=== PATIENT | female | born 1965 | race Caucasian/White ===

== ENCOUNTER → 2019-10-20 11:45 | Outpatient (BNVA) | payer MEDICAID, SELFPAY | PROVIDERS: Referring Provider Nurse Practitioner Family; Visit Provider Specialist | DX: M25.512 Pain in left shoulder (principal) | CPT/HCPCS: 73030 ==

== ENCOUNTER 2019-10-23 13:28 | Emergency (ER) | payer MEDICAID, SELFPAY ==
[2019-10-23 13:39] VITALS: BP 214/107; PULSE 62; RESP 16; TEMP 36.7; O2SAT 98; BMI 26.0
--- NOTE | 2019-10-23 14:07 | ED_ITS ---
Entered by Maine Carter, acting as scribe for Mery Miranda HPI - General Adult General: Chief complaint: General Medical Stated complaint: High BP Time Seen by Provider: 10/23/19 14:04 Source: patient Mode of arrival: ambulatory Limitations: no limitations History of Present Illness: HPI narrative: 54 yo Female presents to ED with complaint of elevated blood pressure. Pt states that a nurse took her blood pressure and highly recommended that she come to the ED. Pt states that about 30 minutes after she takes her medication she has an overload of anxiety. Pt states that she hasn't been having any symptoms related to her high blood pressure but that she does have a cardiac history. Pt states that she hasn't taken any of her blood pressure medications today. Pt states that she thought she had taken them but she hasn't. Pt's blood pressure was recycled and is 195/101. MD complaint: High Blood Pressure Onset (ago): day(s) Relieving factors: none Exacerbating factors: none Associated symptoms: Reports no associated symptoms; Deny chest pain, confusion, diaphoresis, dyspnea, headache(s), malaise, nausea, rash, palpitations, syncope or vomiting Treatments prior to arrival: none Review of Systems General: Reports: other (negative unless marked) Const: Denies: fever, chills, body aches, fatigue, malaise or diaphoresis Eyes: Denies: change in vision or blurry vision ENMT: Denies: throat pain, painful swallowing, hoarseness, ear pain, ear discharge, Change in hearing or nasal discharge Card: Denies: chest pain, palpitations, irregular heart rhythm, syncope, pre- syncope, shortness of breath on exertion or shortness of breath when lying down Resp: Denies: shortness of breath, productive cough, non-productive cough, wheezing, coughing up blood or chest congestion GI: Denies: abdominal pain, nausea, vomiting, vomiting blood, coffee grounds in vomit, diarrhea, constipation, cramping, blood in stool or black tarry stool : Denies: flank pain, painful urination, urinary frequency, urinary urgency, decreased urine ouput, urinary incontinence or blood in urine Musc: Denies: neck pain, back pain, extremity pain, extremity swelling, joint pain, joint swelling, joint warmth or joint stiffness Skin/Breast: Denies: rash, skin tenderness or yellow skin Neuro: Denies: headache, numbness in extremities, weakness in extremities, changes in sensation, lack of coordination, difficulty walking, dizziness, vertigo or confusion Endo: Denies: excessive thirst, tired all the time, cold intolerance, excessive sweating, flushing or hot flashes Sukhwinder/Lymph: Denies: easy bruising, easy bleeding, petechiae or enlarged lymph nodes All/Imm: Denies: hives, throat swelling, tongue swelling, facial swelling or acute wheezing PFSH ED PFSH: Statuses (acute, chronic, etc) shown below reflect problem list status as previously entered and may not be historically accurate Family History Father Stroke Hypertension Mother CHF (congestive heart failure) Hypertension Pacemaker Daughter Hypokalemia Osteoarthritis Son Depression Other Cancer Hyperthyroidism Social History Smoking and tobacco status: former smoker Alcohol intake: current Alcohol intake frequency: holidays/special occasions only Physical Exam Const: COMMON NORMALS: no apparent distress, oriented x3, no limitations, healthy appearing and well nourished EXAM LIMITATIONS: no altered mental status GENERAL APPEARANCE: cooperative, well kempt and well developed ORIENTATION/CONSCIOUSNESS: Yes awake HENMT: COMMON NORMALS: normocephalic, head/scalp atraumatic, hearing grossly normal bilaterally, external ears normal, EAC's normal, external nose normal and moist oral mucous membranes HEAD & SCALP: normal to inspection, normocephalic and atraumatic FACE & SINUS: normal facial exam and face symmetric NOSE: external nose normal and nares normal EXTERNAL EAR: Yes external ears normal EXTERNAL AUDITORY CANAL: EAC's normal MOUTH: oral and palatal mucosa normal and tongue normal Eye: COMMON NORMALS: PERRL, EOMs intact bilaterally, conjunctivae normal and no scleral icterus GENERAL EYE: normal appearance of both eyes and normal light reflex CONJUNCTIVA: Yes conjunctivae normal SCLERA: sclerae normal CORNEA: Yes corneas normal PUPIL: Yes PERRL DIRECT OPHTHALMOSCOPY: Yes normal light reflex Neck/C-Spine: COMMON NORMALS: full ROM, no lymphadenopathy, supple, no meningeal signs and no JVD GENERAL: Yes normal visual inspection and Yes trachea midline CERVICAL SPINE: Yes cervical ROM normal Chest: COMMONS NORMALS: inspection of chest normal and palpation of chest normal Resp: COMMON NORMALS: normal respiratory effort, no retractions, no use of accessory muscles and clear to auscultation bilaterally EFFORT & INSPECTION: Yes able to speak in complete sentences AUSCULTATION: clear to auscultation bilaterally Cardio: COMMON NORMALS: no JVD, regular rate, regular rhythm, S1 normal heart sound, S2 normal heart sound, no gallops, no clicks, no murmurs and no rub JUGULAR VENOUS DISTENTION: no JVD RATE: regular rate RHYTHM: regular rhythm HEART SOUNDS: S1 normal and S2 normal GI: COMMON NORMALS: soft to palpation, non-tender, no hepatosplenomegaly and no masses INSPECTION: Yes normal to inspection PALPATION: Yes soft and Yes no hepatosplenomegaly : COMMON NORMALS: Yes no CVA tenderness BLADDER/KIDNEY EXAM: Yes no CVA tenderness Back/Pelvis: COMMON NORMALS: no CVA tenderness, thoracic and lumbar spine normal to inspection, no thoracic nor lumbar tenderness and thoraco-lumbar ROM normal Extremity: COMMON NORMALS: normal to inspection, full ROM, normal capillary refill, no joint enlargement, no clubbing, cyanosis or edema and no calf tenderness Neuro: COMMON NORMALS: oriented x3, CN's II-XII intact bilaterally, moves all extremities, no focal motor deficits and no sensory deficits noted MENINGEAL SIGNS: Yes no meningeal signs Psych: COMMON NORMALS: mental status grossly normal, thought process normal, cooperative, affect normal, speech normal and activity/motor behavior normal APPEARANCE: Yes well kempt SPEECH: Yes normal speech THOUGHT PROCESS: normal thought process Skin: COMMON NORMALS: no rashes or lesions noted, skin turgor normal, no jaundice, no petechiae and no mottling GENERAL SKIN EXAM: no rashes or lesions noted and turgor normal Course Vital Signs: Vital signs: Vital Signs Temperature 98.0 F 10/23/19 13:39 Pulse Rate 57 L 10/23/19 15:03 Respiratory Rate 20 H 10/23/19 15:03 Blood Pressure 185/97 10/23/19 15:03 Pulse Oximetry 95 10/23/19 15:03 MDM - General Adult MDM Narrative: Medical decision making narrative: [place] is a very nice 54-year-old female who comes in with a concern of elevated blood pressure. She is completely asymptomatic. She had a routine blood pressure check today at her doctor's office and they were concerned about a systolic over 200 and sent her here. Again the patient is asymptomatic. The patient admits to not taking her blood pressure medicines today including her lisinopril/hydrochlorothiazide 20/25 and metoprolol 25 mg. I had her take those medicines here and her blood pressure has already trended down. The patient agrees to complete a blood pressure log and she will follow-up with her doctor as instructed. As the patient has no symptoms of hypertensive urgency/emergency I do not believe a work-up is required. The patient is noncompliant and I have discussed with her that the need to take these medications and she states they do cause anxiety but she will continue them until she can meet with her doctor and discuss further. The patient understands she is welcome to return should her symptoms change/worsen or she simply change her mind and want to return. Lab Data: Labs: Lab Results 10/23/19 10/23/19 10/23/19 Range/Units 14:00 14:00 14:10 WBC 9.3 (4.0-10.0) 10^3/ uL RBC 4.18 (4.1-5.3) 10^6/u L Hgb 13.0 (11.5-15.3) g/dL Hct 39.7 (37.0-47.0) % MCV 95.0 (81-99) fL MCH 31.1 (28.0-34.0) pg MCHC 32.7 (30.0-36.0) g/dL RDW 12.4 (12.1-15.1) % Plt Count 235 (130-400) 10^3/c mm MPV 10.7 H (7.4-10.4) fL Neut % (Auto) 60.8 % Lymph % (Auto) 28.2 % Rogers % (Auto) 7.7 % Eos % (Auto) 2.6 % Baso % (Auto) 0.4 % Neut # (Auto) 5.6 (1.8-7.7) 10^3/u L Lymph # (Auto) 2.6 (0.8-4.8) 10^3/u L Rogers # (Auto) 0.7 (0.2-0.9) 10^3/u L Eos # (Auto) 0.2 (0.0-0.8) 10^3/u L Baso # (Auto) 0.0 (0.0-0.1) 10^3/u L Nucleated RBC % (a uto) 0 % Nucleated RBCs # 0.0 /100WBC Sodium 139 (136-145) mmol/L Potassium 4.0 (3.5-5.1) mmol/L Chloride 103 (98-107) mmol/L Carbon Dioxide 27 (22-29) mmol/L Anion Gap 13.0 (5-19) BUN 12 (6-20) mg/dL Creatinine 1.4 H (0.5-0.9) mg/dL GFR Calculation 38.9 L (90-130) mL/min Glucose 94 (65-115) mg/dL Calcium 10.0 (8.5-10.5) mg/dL Total Bilirubin 0.4 (0.15-1.2) mg/dL AST 17 (0-32) U/L ALT 14 (0-33) U/L Alkaline Phosphata se 137 H (35-105) IU/L Total Protein 7.4 (6.6-8.7) g/dL Albumin 4.2 (3.5-5.2) g/dL Globulin 3.2 (1.3-4.6) g/dL Urine Color Straw (Yellow) Urine Appearance Clear (CLEAR) Urine pH 6 (5-7) Ur Specific Gravit y 1.010 (1.005-1.030) Urine Protein Neg (Negative) Urine Glucose (UA) Norm (Normal) Urine Ketones Negative (Negative) Urine Occult Blood Neg (Negative) Urine Nitrate Negative (Negative) Urine Bilirubin Neg (NEGATIVE) Urine Urobilinogen Norm (Negative) mg/dL Ur Leukocyte Merle ase Negative (Negative) Discharge Plan Discharge Patient Disposition: Home, Self-Care Clinical Impression: Hypertension Qualifiers: Hypertension type: unspecified Qualified Code(s): I10 - Essential (primary) hypertension Condition: Stable Prescriptions: No Action Brilinta 90 mg tablet 90 mg PO BID RF: 0 metoprolol tartrate 25 mg tablet 25 mg PO QDAY RF: 0 lisinopril-hydrochlorothiazide 20-25 mg tablet 1 tab PO QDAY RF: 0 atorvastatin 80 mg tablet 80 mg PO QDAY RF: 0 tizanidine 4 mg capsule 4 mg PO ONCE PRNRF: 0 Discharge Orders: Discharge Order (Routine); Ordered 10/23/19 Ordered By: Mery Miranda Referrals: Jovany Horne DO [Physician] - 7-10 days Discharge Diet: Low Salt Discharge Activity: Resume usual activity Patient Instructions: Hypertension, Chronic Hypertension (ED), Low Sodium Diet (ED), Hypertension (ED) Activity Restrictions/Additional Instructions: Please return to the ER immediately for any of the signs or symptoms listed on your discharge instruction sheets, worsening/changing of your symptoms, you are not getting better as quickly as expected, or for ANY other cause or concerns. Return to the ER for headache, chest pain, shortness of breath, leg swelling, decreased urine output or for any other cause for concern. Discharge Date/Time: 10/23/19 15:04 Coding Level of Care Code ED Veneer Measurer for Chg Fwd Exam Problem Focused The documentation recorded by the Emma garcia Carmen, accurately reflects the service I personally performed and the decisions made by , Mery Miranda Oct 23, 2019 13:28
[2019-10-23 14:18] LABS: Basophils % 0.4 %; Eosinophils # 0.2 10^3/uL (0.0-0.8); Eosinophils % 2.6 %; Hematocrit 39.7 % (37.0-47.0); Lymphocytes # 2.6 10^3/uL (0.8-4.8); Lymphocytes % 28.2 %; Mean Corpuscular HGB Conc 32.7 g/dL (30.0-36.0); Mean Corpuscular Hemoglobin 31.1 pg (28.0-34.0); Mean Platelet Volume 10.7 fL (7.4-10.4); Monocytes # 0.7 10^3/uL (0.2-0.9); Monocytes % 7.7 %; Neutrophils # 5.6 10^3/uL (1.8-7.7); Neutrophils % 60.8 %; Nucleated Red Blood Cells % 0 %; Platelet Count 235 10^3/cmm (130-400); Red Blood Count 4.18 10^6/uL (4.1-5.3); Red Cell Distribution Width 12.4 % (12.1-15.1); White Blood Count 9.3 10^3/uL (4.0-10.0)
[2019-10-23 14:19] LABS: Alanine Aminotransferase 14 U/L (0-33); Albumin Level 4.2 g/dL (3.5-5.2); Alkaline Phosphatase 137 IU/L (35-105); Aspartate Amino Transferase 17 U/L (0-32); Blood Urea Nitrogen 12 mg/dL (6-20); Carbon Dioxide 27 mmol/L (22-29); Chloride 103 mmol/L (98-107); Creatinine Clr Calc Pharmacy 49.5196; Globulin 3.2 g/dL (1.3-4.6); Glomerular Filtration Rate 38.9 mL/min (90-130); Glucose 94 mg/dL (65-115); Sodium 139 mmol/L (136-145); Total Bilirubin 0.4 mg/dL (0.15-1.2); Total Protein 7.4 g/dL (6.6-8.7)
[2019-10-23 14:50] LABS: Add Urine Microscopic? NO
[2019-10-23 14:56] LABS: Bilirubin Urine Neg (NEGATIVE); Blood Urine Neg (Negative); Glucose Urine UA Norm (Normal); Ketones Urine Negative (Negative); Leukocyte Esterase Urine Negative (Negative); Nitrate Urine Negative (Negative); Protein Urine Neg (Negative); Urine Appearance Clear (CLEAR); Urine Color Straw (Yellow); Urobilinogen Urine Norm (Negative); pH Urine 6 (5-7)
[2019-10-23 15:03] VITALS: BP 185/97; PULSE 57; RESP 20; O2SAT 95
== END 2019-10-23 15:04 | disposition home or self-care (01) ==
PROVIDERS: Emergency Provider Emergency Medicine
DX: I10 Essential (primary) hypertension (principal); Z87.891 Personal history of nicotine dependence
CPT/HCPCS: 36415; 80053; 81003; 85025; 99281; 99282; A9270